=== PATIENT | male | born 1965 | race Caucasian/White ===

== ENCOUNTER → 2016-06-06 | Outpatient (CLI) | payer MEDICARE ==
[~2016-06-06] MED LIST: COGENTIN PO; DEPAKOTE ER PO; DESONIDE 0.05% TOP; HALDOL PO; IBUPROFEN PO; PRILOSEC PO; SEROQUEL PO; TOPROL XL PO; TRAZODONE PO
--- NOTE | ~2016-06-06 | CT55 ---
[facility] A Service of [facility] RADIOLOGY TEXT RESULTS PATIENT: AUGUSTO CLAIRE LOCATION: [facility] : 61 UNIT #: [id number] AGE: [address]: Jesus Parker DO SEX: M ORDER DR: [id number] [place] [id number] O MR#: [id number] Acc #: [id number] NAME: AUGUSTO CLAIRE : 1965 SEX: M STUDY DATE/TIME: 06/06/2016 8:00 UNIT: [facility] ROOM: STUDY DESCRIPTION: CT Chest W Con Attending Physician: Clement Parker M.D. Referring Physician: Clement Parker M.D. Ordering Physician: Clement Parker M.D. Primary Care Physician: Clement Parker M.D. MEDICAL IMAGING REPORT This report is preliminary unless electronic signature is present. EXAM CT of the chest with contrast INDICATION Weakness and weight loss. Exam is being performed to evaluate for possible malignancy. TECHNIQUE Axial CT images were obtained from the thoracic inlet through the dome of the diaphragm following the administration of intravenous contrast material. This CT examination was performed with one or more of the following radiation dose reduction techniques: automatic exposure control, adjustment of mA and/or kV according to patient size, and iterative reconstruction. FINDINGS Thoracic aorta measures within normal size limits. There is no evidence of dissection. There is no pleural or pericardial effusion. No pulmonary nodules or masses are identified. There are no infiltrates. The thyroid gland, trachea and esophagus appear unremarkable. There are some coronary artery calcifications. Patient's CT of the abdomen and pelvis will be dictated separately. No aggressive osseous abnormalities are seen. No pathologically enlarged mediastinal or hilar lymph nodes are noted. IMPRESSION No acute intrathoracic process is seen. No etiology for the patient's weight loss is identified. Dictated by... Katt Marx M.D. [facility] A Service [facility] RADIOLOGY TEXT RESULTS PATIENT: AUGUSTO CLAIRE LOCATION: [facility] : 61 UNIT #: [id number] AGE: [address]: Jesus Parker DO SEX: M ORDER DR: THIS IS AN ELECTRONICALLY VERIFIED REPORT Katt Marx M.D. at 06/07/2016 7:46 AM HILARIO/acacia TD: 06/06/2016 13:49 JOB #: [id number] MEDICAL IMAGING REPORT Page 1 of 1
--- NOTE | ~2016-06-06 | CT71 ---
[facility] A Service of [facility] RADIOLOGY TEXT RESULTS PATIENT: AUGUSTO CLAIRE LOCATION: [facility] : 61 UNIT #: [id number] AGE: [address]: Jesus Parker DO SEX: M ORDER DR: [id number] [place] [id number] O MR#: [id number] Acc #: [id number] NAME: AUGUSTO CLAIRE : 1965 SEX: M STUDY DATE/TIME: 06/06/2016 8:54 UNIT: [facility] ROOM: STUDY DESCRIPTION: CT Head Wo Contrast Attending Physician: Clement Parker M.D. Referring Physician: Clement Parker M.D. Ordering Physician: Clement Parker M.D. Primary Care Physician: Clement Parker M.D. MEDICAL IMAGING REPORT This report is preliminary unless electronic signature is present. EXAM CT head 06/06/2016 HISTORY Weight loss, memory loss. Prior history of brain injury at 7 years old. Weakness, off balance, loss of appetite went from 300 pounds to 157 pounds, getting progressively worse. Possible cancer. 4-month duration of symptoms. TECHNIQUE This CT examination was performed with one or more of the following radiation dose reduction techniques: automatic exposure control, adjustment of mA and/or kV according to patient size, and iterative reconstruction. FINDINGS CT head performed skull base through vertex without intravenous contrast. No prior CTs of head for comparison. The brainstem shows no acute abnormality. Cerebellum shows no acute abnormality. The study is significantly degraded overall by streak/motion artifact. Encephalomalacic change in large portion of the anterior and inferior right frontal lobe may reflect patient's prior reported brain injury or some interval vascular insult. There is encephalomalacic change in the anterior right temporal lobe. Extensive encephalomalacic change in the left temporal lobe. These areas may also reflect prior brain injury or some form of vascular insult. They are clearly chronic in appearance. The midline structures are nondisplaced. There is no acute appearing basal ganglia abnormality. No intra- or extraaxial mass lesion or abnormal intracranial fluid collection. There are cavernous carotid and distal vertebral arterial calcifications. The ventricles, cisterns and sulci show mild generalized enlargement felt to reflect combination of ex vacuo change and underlying atrophy. Intraorbital soft tissues are unremarkable. The visualized paranasal sinuses and mastoid air cells are STS. [facility] A Service of [facility] RADIOLOGY TEXT RESULTS PATIENT: AUGUSTO CLAIRE LOCATION: [facility] : 61 UNIT #: [id number] AGE: [address]: Jesus Parker DO SEX: M ORDER DR: rad. Bony structures unremarkable. IMPRESSION 1. Motion-degraded study. No clearly acute abnormality is seen in the brain. If the patient has ongoing neurologic symptoms, consider follow up imaging, preferably with MRI if the patient is a candidate, would be recommended. 2. Prominent areas of encephalomalacic change in the anterior mid to inferior right frontal lobe, anterior right temporal lobe, and anterior to mid left temporal lobe. While these are clearly chronic in time course, it is unclear if they all reflect the patient's stated history of brain injury as a child or intervening vascular insults. Correlation with any earlier studies would be useful if available. 3. Mild generalized atrophy disproportionate to the patient's stated age. 4. Vascular calcifications. Dictated by... Tobi Connors M.D. THIS IS AN ELECTRONICALLY VERIFIED REPORT Tobi Connors M.D. at 06/07/2016 5:05 PM JENNY/acacia TD: 06/06/2016 12:57 JOB #: [id number] MEDICAL IMAGING REPORT Page 1 of 1
--- NOTE | ~2016-06-06 | CT2 ---
[facility] A Service of [facility] RADIOLOGY TEXT RESULTS PATIENT: AUGUSTO CLAIRE LOCATION: [facility] : 61 UNIT #: [id number] AGE: [address]: Jesus Parker DO SEX: M ORDER DR: [id number] [place] [id number] O MR#: [id number] Acc #: [id number] NAME: AUGUSTO CLAIRE : 1965 SEX: M STUDY DATE/TIME: 06/06/2016 8:56 UNIT: [facility] ROOM: STUDY DESCRIPTION: CT Abd and Pelv W Cont Attending Physician: Clement Parker M.D. Referring Physician: Clement Parker M.D. Ordering Physician: Clement Parker M.D. Primary Care Physician: Clement Parker M.D. MEDICAL IMAGING REPORT This report is preliminary unless electronic signature is present. EXAM CT abdomen and pelvis with contrast INDICATION Loss of balance. Generalized weakness. Unexplained weight loss and loss of appetite over the past 4 months. PROCEDURE Contrast-enhanced CT of the abdomen and pelvis. 100 mL of Isovue-370. COMPARISON None. TECHNIQUE This CT examination was performed with one or more of the following radiation dose reduction techniques: automatic exposure control, adjustment of mA and/or kV according to patient size, and iterative reconstruction. FINDINGS Refer to the separately dictated chest CT for thoracic findings. ABDOMEN WITH CONTRAST: The liver, spleen, kidneys, adrenal glands, pancreas and gallbladder unremarkable. Bowel loops are not frankly dilated. Moderately large colonic stool burden. There is short-segment narrowing and thickening in the mid transverse colon. Extends for approximately 1.7 cm. No evidence for proximal obstruction. This probably simply represents focal contraction or peristalsis. No abdominal adenopathy. PELVIS WITH CONTRAST: No pelvic mass, fluid or adenopathy. No aggressive appearing bone lesion. [facility] A Service of [facility] RADIOLOGY TEXT RESULTS PATIENT: AUGUSTO CLAIRE LOCATION: [facility] : 61 UNIT #: [id number] AGE: [address]: Jesus Parker DO SEX: M ORDER DR: IMPRESSION 1. No evidence for metastatic disease in the abdomen or pelvis or convincing evidence for primary malignancy. 2. There is short-segment apparent thickening and narrowing in the mid transverse colon probably representing focal contraction. Colonic mass is difficult to exclude. If patient has not had a recent colonoscopy that may be helpful. 3. Moderately large colonic stool burden throughout the colon. Dictated by... Jacob Amado M.D. THIS IS AN ELECTRONICALLY VERIFIED REPORT Jacob Amado M.D. at 06/07/2016 4:50 PM AYAKA/acacia TD: 06/07/2016 09:38 JOB #: [id number] MEDICAL IMAGING REPORT Page 1 of 1
[2016-06-06 08:10] LABS: POC - CREATININE 1.29 mg/dL (0.64-1.27); POC - GFR >60.0 mL/min (>60)
== END | disposition home or self-care (01) ==
LOC: SCT 07:25
PROVIDERS: Physical Medicine & Rehabilitation
DX: S06.2X Diffuse traumatic brain injury (principal); R63.4 Abnormal weight loss; K63.89 Other specified diseases of intestine; G93.89 Other specified disorders of brain; G31.9 Degenerative disease of nervous system, unspecified
CPT/HCPCS: 70450; 71260; 74177; 82565; Q9967